=== PATIENT | male | born 1995 | race Caucasian/White ===

== ENCOUNTER 2021-04-07 16:51 | Emergency (ER) | payer BC ==
[2021-04-07 18:01] LABS: HEMOGLOBIN 14.5 gm/dl (14.0-17.5); RED BLOOD COUNT 4.92 M/UL (4.20-5.50); WHITE BLOOD COUNT 4.7 K/UL (4.5-11.0)
[2021-04-07 18:38] LABS: BUN/CREATININE RATIO 5 (0-10)
== END 2021-04-07 20:28 | disposition home or self-care (01) ==
LOC: ER1 16:51
PROVIDERS: Nurse Practitioner
DX: U07.1 COVID-19 (principal); R07.89 Other chest pain; Z88.0 Allergy status to penicillin
CPT/HCPCS: 0240U; 71045; 80048; 82550; 82553; 83874; 84484; 85025; 85379; 93005; 99285